=== PATIENT | male | born 1945 | race Caucasian/White ===

== ENCOUNTER 2017-05-20 16:44 | Emergency (ER) | payer MEDICARE, OTHER ==
--- NOTE | 2017-05-20 17:02 | ERPHSYRPT ---
- History of Present Illness Time Seen by Provider: 05/20/17 16:57 Source: patient Exam Limitations: no limitations Patient Subjective Stated Complaint: PT REPROTS WAKING UP THIS AM TO RIGHT EYE BEING RED IRRITATED ET SOMETIMES PAINFUL-DENIES INJURY-DENIES GETTING SOMETHING IN IT-REPORTS TEARING BUT DENIES DRAINAGE-REPORTS SENSATIVE TO LIGHT Triage Nursing Assessment: PT PINK WARM ET [id number] NOTED TO RIGHT EYE- PT DENIES BLURRED VISION OR VISUAL CHANGES-NO DRAINAGE NOTED AT THSI TIME Physician History: 71-year-old white male wakeup today morning with pain in his right eye. He feels like there is some foreign body on the lateral side of the right eye. He denies any visual disturbance, but he states that lights is bothering him. Denies any other symptoms. Has a normal 20/20 visual activity. Timing/Duration: today Location: right eye Severity: moderate Apparent Injury: possibly Associated Symptoms: pain, burning, sensitivity to light, redness Allergies/Adverse Reactions: nitroglycerin Allergy (Severe, Verified 05/20/17 16:53) HEART HEARTRATE DROPS INTO 20'S IF SUBLINGUAL Home Medications: Atorvastatin Calcium [Lipitor 40Mg] 40 mg PO DAILY 03/10/16 [History] Carvedilol 12.5 mg [Coreg 12.5 mg] 12.5 mg PO BID 03/10/16 [History] Furosemide 20 mg [Lasix 20 mg] 20 mg PO UD 03/10/16 [History] Lisinopril 10 mg [Zestril 10 MG] 10 mg PO DAILY 03/10/16 [History] Hx Tetanus, Diphtheria Vaccination/Date Given: No Hx Influenza Vaccination/Date Given: No Hx Pneumococcal Vaccination/Date Given: No Immunizations Up to Date: Yes - Review of Systems Constitutional: No Symptoms Eyes: Eye Pain, Eye Redness, Photophobia, Tearing, Foreign Body Sensation, No Vision Changes, No Double Vision Ears, Nose, & Throat: No Symptoms - Past Medical History Pertinent Past Medical History: Yes Cardiac History: Congestive Heart Failure, Hypertension, Myocardial Infarction ( [place]) - Past Surgical History Past Surgical History: Yes Cardiac: CABG, Internal Defibrillator, Pacemaker Musculoskeletal: Orthopedic Surgery - Social History Smoking Status: Never smoker Exposure to second hand smoke: No Drug Use: none Patient Lives Alone: No - Nursing Vital Signs Nursing Vital Signs: Initial Vital Signs Temperature 98.0 F 05/20/17 16:49 Pulse Rate 76 05/20/17 16:49 Respiratory Rate 20 05/20/17 16:49 Blood Pressure 152/88 05/20/17 16:49 O2 Sat by Pulse Oximetry 97 05/20/17 16:49 Pain Scale Pain Intensity 6 - Physical Exam General Appearance: no apparent distress Vision Acuity Degree Evaluation Phase: Corrected Eye Exam: right eye: conjunctival inflammation, erythema, bilateral eye: normal inspection, PERRL, EOMI Ears, Nose, Throat Exam: normal ENT inspection Neck Exam: normal inspection SpO2: 97 Oxygen Delivery: Room Air - Course Nursing assessment & vital signs reviewed: Yes - Progress Progress: improved, pain not gone completely Counseled pt/family regarding: diagnosis, need for follow-up - Departure Time of Disposition: 17:07 Departure Disposition: Home Clinical Impression: Scleritis and episcleritis of right eye Condition: Stable Critical Care Time: No Referrals: ANTONIO JEFFERSON MD [Primary Care Provider] - Instructions: Eye Pain Additional Instructions: use eye drops Tobradex 2 drops in right eye 4 times a day EYE PROBLEM 1. If a patch is applied, your vision will be impaired. Do not drive. 2. The more you rest your good eye, the better your affected eye will feel. 3. Use any eye drops or ointments as prescribed by the emergency room physician. 4. See your family physician or return to the emergency department for any increasing pain or decreased vision. 5. Use good hygiene and keep eye clean. 6. Do not rub the eye. use eye drops tobradex 2 drops in right eye every six hours, follow up with eye dr mg
[2017-05-20 17:16] VITALS: BP 148/72; PULSE 74; O2SAT 98
== END 2017-05-20 17:16 | disposition home or self-care (01) ==
LOC: ED 16:44
DX: H15.091 Other scleritis, right eye (principal); H15.101 Unspecified episcleritis, right eye
CPT/HCPCS: 99283; A9270-GY

== ENCOUNTER 2017-06-27 09:39 | Emergency (ER) | payer MEDICARE, OTHER ==
[2017-06-27] MEDS ORDERED: BABY ASPIRIN 81 MG CHEW PO ONE (10:06)
[2017-06-27] MEDS ORDERED: BABY ASPIRIN 81 MG CHEW ONE (10:10)
--- NOTE | 2017-06-27 10:13 | ERPHSYRPT ---
- History of Present Illness Time Seen by Provider: 06/27/17 10:08 Historian: patient Exam Limitations: no limitations Patient Subjective Stated Complaint: moving a tractor this am and began feeling weak. states had some slight chest discomfort at the time. earlier this week had a couple episodes of weakness and diaphoresis Triage Nursing Assessment: ambulated to room without difficulty. skin w/d, pale , resp easy and nonlabored. denies any discomfort at this time. did have some slight sob earlier. Physician History: 71-year-old white male arrives with complaint of shortness of breath feeling weak and pain in the anterior chest this occurred this morning him 8:30 and 9: 00. Patient states he's been experiencing fatigue and generalized weakness and chills for the past week. He states today he went to move a tractor weight which weighed about 150 pounds he began to feel short of breath extremely weak had anterior chest pain , described as a tightness,this lasted for about 15 minutes. Patient now states she does not have any shortness breath or chest pain he does feel weak. He has no nausea no vomiting. Past medical history includes congestive heart failure, high blood pressure, myocardial infarction. Past surgical history includes cardiac pacemaker, left shoulder surgery, CABG. Social history patient denies tobacco alcohol or illicit drug use. Patient states he took one aspirin this morning 81 mg which she takes daily. Timing/Duration: other (patient feeling weak for apprromately 1 week, patient with substernal chest pain, sob lasting 15 minutes occurred with exertion this morning at 8:30) Activities at Onset: activity (moving heavy tractor weight) Location: substernal Chest Pain Radiation: no radiation Severity of Pain-Max: moderate Modifying Factors: Improves With: exertion Nitro Today/Relief: no nitro taken today Aspirin Treatment Today: 81 mg x 1 (81 mg at home), 81 mg x 3 (243 mg in the ER) Allergies/Adverse Reactions: nitroglycerin Allergy (Severe, Verified 05/20/17 16:53) HEART HEARTRATE DROPS INTO 20'S IF SUBLINGUAL Home Medications: Atorvastatin Calcium [Lipitor 40Mg] 40 mg PO DAILY 03/10/16 [History] Carvedilol 12.5 mg [Coreg 12.5 mg] 12.5 mg PO BID 03/10/16 [History] Furosemide 20 mg [Lasix 20 mg] 20 mg PO UD 03/10/16 [History] Lisinopril 10 mg [Zestril 10 MG] 10 mg PO DAILY 03/10/16 [History] Hx Tetanus, Diphtheria Vaccination/Date Given: No Hx Influenza Vaccination/Date Given: No Hx Pneumococcal Vaccination/Date Given: No Immunizations Up to Date: No - Review of Systems Constitutional: Chills (chills last week), Weakness Eyes: No Symptoms Ears, Nose, & Throat: No Symptoms Respiratory: Dyspnea (shortness of breath with chest pain earlier today), Dyspnea on Exertion (ANDERSON), No Cough, No Cyanosis, No Stridor, No Wheezing Cardiac: Chest Pain, No Edema, No Palpitations, No Syncope, No Orthopnea, No PND Abdominal/Gastrointestinal: No Abdominal Pain, No Nausea, No Vomiting, No Diarrhea Genitourinary Symptoms: No Dysuria Musculoskeletal: No Back Pain, No Neck Pain Skin: No Rash Neurological: No Dizziness, No Focal Weakness, No Sensory Changes Psychological: No Symptoms Endocrine: No Symptoms All Other Systems: Reviewed and Negative - Past Medical History Pertinent Past Medical History: Yes Cardiac History: Congestive Heart Failure, Coronary Artery Disease, Hypertension , Myocardial Infarction ([place]) - Past Surgical History Past Surgical History: Yes Cardiac: CABG, Internal Defibrillator, Pacemaker Musculoskeletal: Orthopedic Surgery - Social History Smoking Status: Never smoker Exposure to second hand smoke: No Drug Use: none Patient Lives Alone: No - Nursing Vital Signs Nursing Vital Signs: Initial Vital Signs Temperature 97.3 F 06/27/17 09:47 Pulse Rate 80 06/27/17 09:47 Respiratory Rate 18 06/27/17 09:47 Blood Pressure 114/63 06/27/17 09:47 O2 Sat by Pulse Oximetry 98 06/27/17 09:47 Pain Scale Pain Intensity 0 - Physical Exam General Appearance: no apparent distress, alert Eye Exam: PERRL/EOMI, eyes nml inspection Ears, Nose, Throat Exam: normal ENT inspection, moist mucous membranes Neck Exam: normal inspection, non-tender, supple, full range of motion Respiratory Exam: normal breath sounds, lungs clear, No respiratory distress Cardiovascular Exam: regular rate/rhythm, normal heart sounds Gastrointestinal/Abdomen Exam: soft, No tenderness, No mass Back Exam: normal inspection, No CVA tenderness, No vertebral tenderness Extremity Exam: normal inspection, normal range of motion Neurologic Exam: alert, oriented x 3, cooperative, normal mood/affect, sensation nml, No motor deficits Skin Exam: normal color, warm, dry SpO2 Interpretation: normal (98%) SpO2: 98 Oxygen Delivery: Room Air - Course Nursing assessment & vital signs reviewed: Yes EKG Interpreted by Me: RATE (48 bpm), Other (EKG: Paced rhythm, 48 bpm) - Radiology Exams Chest X-ray Interpretation: Discussed w/ radiologist, Other (Chest x-ray: non acute underinflated chest with chronic features) Ordered Tests: Active Orders 24 hr Category Date Time Status Head Chef STAT Care 06/27/17 10:07 Active EKG-ER Only STAT Care 06/27/17 10:06 Active IV Insertion STAT Care 06/27/17 10:06 Active Pulse Oximetry (ED) STAT Care 06/27/17 10:06 Active CHEST 1 VIEW (PORTABLE) Stat Exams 06/27/17 10:06 Completed CBC W DIFF Stat Lab 06/27/17 10:17 Completed CMP Stat Lab 06/27/17 10:17 Completed D-DIMER QUANTITATION Stat Lab 06/27/17 10:14 Completed FREE TRIODOTHYRONINE Stat Lab 06/27/17 10:17 Completed NT PRO BNP Stat Lab 06/27/17 10:17 Completed PROTIME WITH INR Stat Lab 06/27/17 10:14 Completed PTT Stat Lab 06/27/17 10:14 Completed TROPONIN Q3H Lab 06/27/17 10:15 Completed TSH, 3RD Generation Routine Lab 06/27/17 10:15 Completed Medication Summary Generic Name Dose Route Start Last Admin Trade Name Freq PRN Reason Stop Dose Admin Heparin Sodium/Dextrose 250 mls @ 10 mls/hr 06/27/17 12:30 Heparin 25,000 Units/D5w 250ml Premix IV 07/27/17 12:29 .Q24H STEVEN Discontinued Medications Generic Name Dose Route Start Last Admin Trade Name Freq PRN Reason Stop Dose Admin Aspirin 243 mg 06/27/17 10:06 06/27/17 10:18 Baby Aspirin 81 Mg Chew PO 06/27/17 10:07 243 mg STAT ONE Administration Aspirin Confirm 06/27/17 10:10 Baby Aspirin 81 Mg Chew Administered 06/27/17 10:11 Dose 243 mg .ROUTE .STK-MED ONE Heparin Sodium (Beef Lung) 5,000 unit 06/27/17 12:22 06/27/17 12:36 Heparin 5000 Units/0.5 Ml (High Risk Med) IV 06/27/17 12:23 5,000 unit STAT ONE Administration Heparin Sodium (Beef Lung) Confirm 06/27/17 12:35 Heparin 5000 Units/0.5 Ml (High Risk Med) Administered 06/27/17 12:36 Dose 5,000 unit .ROUTE .STK-MED ONE Lab/Rad Data: Laboratory Result Diagrams 06/27/17 10:17 06/27/17 10:17 Laboratory Results 06/27/17 06/27/17 06/27/17 Range/Units 10:17 10: 10:15 WBC 5.1 (4.0-10.5) K/mm3 RBC 4.27 (4.1-5.6) M/mm3 Hgb 12.0 L (12.5-18.0) gm/dl Hct 36.4 L (42-50) % MCV 85.2 (78-100) fl MCH 28.1 (26-32) pg MCHC 33.0 (32-36) g/dl RDW 14.2 H (11.5-14.0) % Plt Count 178 (150-450) K/mm3 MPV 11.5 H (6-9.5) fl Gran % 70.2 H (36.0-66.0) % Lymphocytes % 19.9 L (24.0-44.0) % Monocytes % 7.3 (0.0-12.0) % Eosinophils % 2.0 (0.00-5.0) % Basophils % 0.6 (0.0-0.4) % Basophils # 0.03 (0-0.4) INR (0.8-3.0) APTT (24.1-36.1) SECONDS D-Dimer (0-500) ng/mL Sodium 139 (136-145) mEq/L Potassium 4.3 (3.5-5.1) mEq/L Chloride 105 (98-107) mEq/L Carbon Dioxide 22.2 (21-32) mEq/L Anion Gap 16.2 H (5-15) MEQ/L BUN 29 H (9-20) mg/dL Creatinine 1.45 H (0.55-1.30) mg/dl Estimated GFR 51 ML/MIN Glucose 164 H (70-110) MG/DL Calcium 9.0 (8.5-10.1) mg/dL Total Bilirubin 1.70 H (0.2-1.0) mg/dL AST 36 (15-37) U/L ALT 33 (12-78) U/L Alkaline Phosphatase 81 (46-116) U/L Troponin I < 0.017 (0.000-0.056) ng/ml NT-Pro-B Natriuret Pep 1337 H (0-125) pg/ml Serum Total Protein 7.3 (6.4-8.2) gm/dL Albumin 3.7 (3.4-5.0) g/dL Free T3 pg/mL 3.87 (2.18-3.98) pg/ml TSH 3rd Generation 0.015 L (0.358-3.740) mIU/L 06/27/17 06/27/17 Range/Units 10:14 10:14 WBC (4.0-10.5) K/mm3 RBC (4.1-5.6) M/mm3 Hgb (12.5-18.0) gm/dl Hct (42-50) % MCV (78-100) fl MCH (26-32) pg MCHC (32-36) g/dl RDW (11.5-14.0) % Plt Count (150-450) K/mm3 MPV (6-9.5) fl Gran % (36.0-66.0) % Lymphocytes % (24.0-44.0) % Monocytes % (0.0-12.0) % Eosinophils % (0.00-5.0) % Basophils % (0.0-0.4) % Basophils # (0-0.4) INR 1.07 (0.8-3.0) APTT 32.0 (24.1-36.1) SECONDS D-Dimer 1266 H* (0-500) ng/mL Sodium (136-145) mEq/L Potassium (3.5-5.1) mEq/L Chloride (98-107) mEq/L Carbon Dioxide (21-32) mEq/L Anion Gap (5-15) MEQ/L BUN (9-20) mg/dL Creatinine (0.55-1.30) mg/dl Estimated GFR ML/MIN Glucose (70-110) MG/DL Calcium (8.5-10.1) mg/dL Total Bilirubin (0.2-1.0) mg/dL AST (15-37) U/L ALT (12-78) U/L Alkaline Phosphatase (46-116) U/L Troponin I (0.000-0.056) ng/ml NT-Pro-B Natriuret Pep (0-125) pg/ml Serum Total Protein (6.4-8.2) gm/dL Albumin (3.4-5.0) g/dL Free T3 pg/mL (2.18-3.98) pg/ml TSH 3rd Generation (0.358-3.740) mIU/L - Progress Progress: improved Air Movement: fair Progress Note: 06/27/17 11:36 71-year-old white male with history of atherosclerotic coronary artery disease CABG and cardiac pacemaker. He arrives with complaint of a feeling weak and experiencing anterior chest pain shortness of breath which occurred around 8:30 this morning while moving a very heavy tractor weight. On arrival patient is pain-free EKG shows a paced rhythm no acute changes troponin is within normal limits. Chest x-ray is remarkable for chronic the changes no acute disease process noted patient's d-dimer was elevated at 1266 patient's BNP was elevated at 1337. initial troponin was normal. Patient appears to be stable. Consideration was given to obtaining CT a chest however patient's creatinine clearance is 51. We are unable to do a VQ scan at this time in this facility patient was asking that I discuss case with the patient's industrial production manager, . Case was discussed with her she has a agreed to accept patient in transfer to [facility] [place]. Will give patient heparin bolus and placed on a heparin drip. Patient has already received aspirin 243 mg he took 81 mg at home we'll plan to transfer when bed is available. Diagnosis chest pain. Elevated d-dimer. . - Departure Time of Disposition: 13:00 Departure Disposition: Transfer ([facility] [address]) Clinical Impression: Elevated d-dimer Chest pain Qualifiers: Chest pain type: unspecified Qualified Code(s): R07.9 - Chest pain, unspecified Condition: Fair Critical Care Time: No Referrals: ANTONIO JEFFERSON MD [Primary Care Provider] -
[2017-06-27 10:19] LABS: BASOPHIL % 0.6 % (0.0-0.4); Granulocytes % 70.2 % (36.0-66.0); Lymphocytes % 19.9 % (24.0-44.0); Mean Cell Volume 85.2 fl (78-100); Mean Corpuscular Hemoglobin 28.1 pg (26-32); Mean Platelet Volume 11.5 fl (6-9.5); Monocytes % 7.3 % (0.0-12.0); Platelet Count 178 K/mm3 (150-450); Red Blood Count 4.27 M/mm3 (4.1-5.6); Red Cell Distribution Width 14.2 % (11.5-14.0); White Blood Count 5.1 K/mm3 (4.0-10.5)
--- NOTE | 2017-06-27 10:45 | XRAY ---
Indication: Chest pain and short of breath. Comparison: March 10, 2016. Portable chest underinflated today again without focal infiltrate, consolidation, or large effusion. The heart is borderline prominent again demonstrating previous cardiac valve replacement surgery and left-sided AICD. Bony thorax intact again with mild osteopenia and degenerative changes. Impression: Nonacute underinflated chest with chronic features.
[2017-06-27 11:01] LABS: ALBUMIN 3.7 g/dL (3.4-5.0); ANION GAP 16.2 MEQ/L (5-15); BILIRUBIN,TOTAL 1.7 mg/dL (0.2-1.0); Carbon Dioxide 22.2 mEq/L (21-32); FREE TRIODOTHYRONINE 3.87 pg/ml (2.18-3.98); Potassium 4.3 mEq/L (3.5-5.1); Total Protein 7.3 gm/dL (6.4-8.2)
[2017-06-27 11:05] LABS: TROPONIN < 0.017 ng/ml (0.000-0.056)
[2017-06-27] MEDS ORDERED: Heparin 5000 UNITS/0.5 ML (HIGH RISK MED) IV ONE (12:22)
[2017-06-27] MEDS ORDERED: Heparin 25,000 units/D5W 250ML PREMIX 25,000 UNITS/250 ML BAG IV SCH (12:30)
[2017-06-27] MEDS ORDERED: Heparin 5000 UNITS/0.5 ML (HIGH RISK MED) ONE (12:35)
[2017-06-27 12:42] LABS: INR 1.07 (0.8-3.0); PROTIME 11.9 SECONDS (8.83-12.87)
[2017-06-27 13:29] VITALS: BP 137/81; PULSE 65
[2017-06-27 19:48] VITALS: O2SAT 98
== END 2017-06-27 13:29 | disposition short-term general hospital (02) ==
LOC: ED 09:39
DX: R79.1 Abnormal coagulation profile (principal); R07.9 Chest pain, unspecified; I25.10 Atherosclerotic heart disease of native coronary artery without angina pectoris; Z95.1 Presence of aortocoronary bypass graft; Z95.0 Presence of cardiac pacemaker; R07.89 Other chest pain; R06.02 Shortness of breath; I50.9 Heart failure, unspecified; I10 Essential (primary) hypertension; I21.9 Acute myocardial infarction, unspecified; Z79.899 Other long term (current) drug therapy
CPT/HCPCS: 36000; 36415; 71010; 80053; 83880; 84443; 84481; 84484; 85025; 85379; 85610; 85730; 93005; 93041; 96374; 99285; J1644; A9270-GY

== ENCOUNTER 2019-08-14 11:45 | Emergency (ER) | payer MEDICARE, OTHER ==
--- NOTE | 2019-08-14 12:05 | ERPHSYRPT ---
- History of Present Illness Time Seen by Provider: 08/14/19 11:55 Source: patient Exam Limitations: no limitations Physician History: 74 y/o white male with sig cardiac hx including cabg, cardiac stents and pacemaker/defibrillator in place. pt has had a mild intermittent cough. denies cp. his major complaint is weakness. pt denies any other flu like sx. Timing/Duration: day(s) (5) Severity: moderate Associated Symptoms: shortness of breath (mild), weakness, No nausea, No vomiting, No abdominal pain, No chest pain, No fever Allergies/Adverse Reactions: nitroglycerin Allergy (Severe, Verified 05/20/17 16:53) HEART HEARTRATE DROPS INTO 20'S IF SUBLINGUAL Home Medications: Atorvastatin Calcium [Lipitor 40Mg] 40 mg PO DAILY 03/10/16 [History] Carvedilol 12.5 mg [Coreg 12.5 mg] 12.5 mg PO BID 03/10/16 [History] Furosemide 20 mg [Lasix 20 mg] 20 mg PO UD 03/10/16 [History] Lisinopril 10 mg [Zestril 10 MG] 10 mg PO DAILY 03/10/16 [History] Hx Tetanus, Diphtheria Vaccination/Date Given: No Hx Influenza Vaccination/Date Given: No Hx Pneumococcal Vaccination/Date Given: No - Review of Systems Constitutional: Weakness Eyes: No Symptoms Ears, Nose, & Throat: No Symptoms Respiratory: Cough, Dyspnea Cardiac: No Symptoms, No Chest Pain Abdominal/Gastrointestinal: No Symptoms Genitourinary Symptoms: No Symptoms Musculoskeletal: No Symptoms Skin: No Symptoms Neurological: No Symptoms Psychological: No Symptoms Endocrine: No Symptoms Hematologic/Lymphatic: No Symptoms Immunological/Allergic: No Symptoms All Other Systems: Reviewed and Negative - Past Medical History Pertinent Past Medical History: Yes Neurological History: No Pertinent History ENT History: No Pertinent History Cardiac History: Congestive Heart Failure, Coronary Artery Disease, Hypertension , Myocardial Infarction ([place]) Respiratory History: No Pertinent History Endocrine Medical History: No Pertinent History Musculoskeletal History: No Pertinent History GI Medical History: No Pertinent History History: No Pertinent History Psycho-Social History: No Pertinent History Male Reproductive Disorders: No Pertinent History - Past Surgical History Past Surgical History: Yes Neuro Surgical History: No Pertinent History Cardiac: CABG, Internal Defibrillator, Pacemaker Respiratory: No Pertinent History Gastrointestinal: No Pertinent History Genitourinary: No Pertinent History Musculoskeletal: No Pertinent History, Orthopedic Surgery Male Surgical History: No Pertinent History - Social History Smoking Status: Never smoker Exposure to second hand smoke: No Drug Use: none Patient Lives Alone: No - Nursing Vital Signs Nursing Vital Signs: Initial Vital Signs Temperature 97.6 F 08/14/19 11:55 Pulse Rate 103 H 08/14/19 11:55 Respiratory Rate 16 08/14/19 11:55 Blood Pressure 119/81 08/14/19 11:55 O2 Sat by Pulse Oximetry 98 08/14/19 11:55 Pain Scale Pain Intensity 0 - Physical Exam General Appearance: mild distress, alert, anxiety Eye Exam: PERRL/EOMI, eyes nml inspection Ears, Nose, Throat Exam: normal ENT inspection, moist mucous membranes Neck Exam: normal inspection, non-tender, supple, full range of motion Respiratory Exam: normal breath sounds, lungs clear, airway intact, No chest tenderness, No respiratory distress Cardiovascular Exam: regular rate/rhythm, normal heart sounds, normal peripheral pulses Gastrointestinal/Abdomen Exam: soft, normal bowel sounds, No tenderness Rectal Exam: not done Back Exam: normal inspection, normal range of motion, No CVA tenderness, No vertebral tenderness Extremity Exam: normal inspection, normal range of motion, pelvis stable Neurologic Exam: alert, oriented x 3, cooperative, gmat instructor II-XII nml as tested Skin Exam: normal color, warm, dry Lymphatic Exam: No adenopathy SpO2 Interpretation: normal O2 Delivery: Room Air - Course Nursing assessment & vital signs reviewed: Yes EKG Interpreted by Me: RATE (107), Other (av paced rhythm. new tachycardia compared to ekg dated 06/27/17) Ordered Tests: Active Orders 24 hr Category Date Time Status CHEST 1 VIEW (PORTABLE) Stat Exams 08/14/19 12:09 Completed CBC W DIFF Stat Lab 08/14/19 12:17 Completed CMP Stat Lab 08/14/19 12:17 Completed D-DIMER QUANTITATIVE Stat Lab 08/14/19 12:17 Completed MAGNESIUM Stat Lab 08/14/19 12:17 Completed NT PRO BNP Stat Lab 08/14/19 12:17 Completed PROTIME WITH INR Stat Lab 08/14/19 12:17 Completed TROPONIN Q3H Lab 08/14/19 12:17 Completed TROPONIN Q3H Lab 08/14/19 15:15 Ordered TROPONIN Q3H Lab 08/14/19 18:15 Ordered TROPONIN Q3H Lab 08/14/19 21:15 Ordered Medication Summary Discontinued Medications Generic Name Dose Route Start Last Admin Trade Name Birgit PRN Reason Stop Dose Admin Furosemide 40 mg 08/14/19 13:04 08/14/19 13:12 Lasix 40 Mg/4 Ml IV 08/14/19 13:05 40 mg STAT ONE Administration Furosemide Confirm 08/14/19 13:11 Lasix 40 Mg/4 Ml Administered 08/14/19 13:12 Dose 40 mg .ROUTE .STK-MED ONE Lab/Rad Data: Laboratory Result Diagrams 08/14/19 12:17 08/14/19 12:17 Laboratory Results 08/14/19 08/14/19 08/14/19 Range/Units 12:17 12:17 12:17 WBC (4.0-10.5) K/mm3 RBC (4.1-5.6) M/mm3 Hgb (12.5-18.0) gm/dl Hct (42-50) % MCV (78-100) fl MCH (26-32) pg MCHC (32-36) g/dl RDW (11.5-14.0) % Plt Count (150-450) K/mm3 MPV (7.5-11.0) fl Gran % (36.0-66.0) % Eos # (Auto) (0-0.5) Absolute Lymphs (auto) (1.0-4.6) Absolute Monos (auto) (0.0-1.3) Lymphocytes % (24.0-44.0) % Monocytes % (0.0-12.0) % Eosinophils % (0.00-5.0) % Basophils % (0.0-0.4) % Absolute Granulocytes (1.4-6.9) Basophils # (0-0.4) PT 11.8 (8.83-12.87) SECONDS INR 1.04 (0.8-3.0) D-Dimer 1075 H* (215-500) ng/mL Sodium 140 (137-145) mmol/L Potassium 5.0 (3.5-5.1) mmol/L Chloride 108 H (98-107) mmol/L Carbon Dioxide 26 (22-30) mmol/L Anion Gap 11.4 (5-15) MEQ/L BUN 34 H (9-20) mg/dL Creatinine 1.96 H (0.66-1.25) mg/dL Estimated GFR 35.5 ML/MIN Glucose 104 (74-106) mg/dL Calcium 9.4 (8.4-10.2) mg/dL Magnesium 2.4 H (1.6-2.3) mg/dL Total Bilirubin 1.20 (0.2-1.3) mg/dL AST 25 (17-59) U/L ALT 20 (0-50) U/L Alkaline Phosphatase 65 (38-126) U/L Troponin I < 0.012 (0.000-0.034) ng/mL NT-Pro-B Natriuret Pep 2390 H (0-1800) pg/mL Serum Total Protein 7.5 (6.3-8.2) g/dL Albumin 4.1 (3.5-5.0) g/dL 08/14/19 Range/Units 12:17 WBC 5.2 (4.0-10.5) K/mm3 RBC 4.10 (4.1-5.6) M/mm3 Hgb 12.1 L (12.5-18.0) gm/dl Hct 37.2 L (42-50) % MCV 90.7 (78-100) fl MCH 29.5 (26-32) pg MCHC 32.5 (32-36) g/dl RDW 14.6 H (11.5-14.0) % Plt Count 151 (150-450) K/mm3 MPV 12.1 H (7.5-11.0) fl Gran % 63.5 (36.0-66.0) % Eos # (Auto) 0.18 (0-0.5) Absolute Lymphs (auto) 1.14 (1.0-4.6) Absolute Monos (auto) 0.53 (0.0-1.3) Lymphocytes % 22.1 L (24.0-44.0) % Monocytes % 10.3 (0.0-12.0) % Eosinophils % 3.5 (0.00-5.0) % Basophils % 0.6 (0.0-0.4) % Absolute Granulocytes 3.27 (1.4-6.9) Basophils # 0.03 (0-0.4) PT (8.83-12.87) SECONDS INR (0.8-3.0) D-Dimer (215-500) ng/mL Sodium (137-145) mmol/L Potassium (3.5-5.1) mmol/L Chloride (98-107) mmol/L Carbon Dioxide (22-30) mmol/L Anion Gap (5-15) MEQ/L BUN (9-20) mg/dL Creatinine (0.66-1.25) mg/dL Estimated GFR ML/MIN Glucose (74-106) mg/dL Calcium (8.4-10.2) mg/dL Magnesium (1.6-2.3) mg/dL Total Bilirubin (0.2-1.3) mg/dL AST (17-59) U/L ALT (0-50) U/L Alkaline Phosphatase (38-126) U/L Troponin I (0.000-0.034) ng/mL NT-Pro-B Natriuret Pep (0-1800) pg/mL Serum Total Protein (6.3-8.2) g/dL Albumin (3.5-5.0) g/dL - Progress Progress: unchanged, re-examined Progress Note: 08/14/19 14:[address] jason, pts ribbon lap machine tender, at 1310, 1330 and 1425. at 1425 we were informed she was in a procedure scheduled until 1430. pts condition has not changed. 08/14/19 15:[address] jason at 1450. she does not feel there is acute cardiac decompensation. she does feel as though his sx of weakness, elevated d dimer and acute renal insufficiency warrants transfer. they will consult and hospitalist will admit. need to wait for call back from hospitalist 08/14/19 15:43 dr. Becky Tillman [facility] hospitalist, accepts pt for transfer. Counseled pt/family regarding: lab results, diagnosis, rad results - Departure Departure Disposition: Home Clinical Impression: Weakness, Elevated d-dimer, Acute kidney insufficiency Condition: Stable Critical Care Time: No Referrals: ANTONIO JEFFERSON MD [Primary Care Provider] -
[2019-08-14 12:31] LABS: Absolute Neutrophil Ct (ANC) 3.27 (1.4-6.9); BASOPHIL % 0.6 % (0.0-0.4); Basophil (Absolute #) 0.03 (0-0.4); Eosinophil % 3.5 % (0.00-5.0); Eosinophil (Absolute #) 0.18 (0-0.5); Hematocrit 37.2 % (42-50); Hemoglobin 12.1 gm/dl (12.5-18.0); Lymphocyte (Absolute #) 1.14 (1.0-4.6); Lymphocytes % 22.1 % (24.0-44.0); Mean Cell Volume 90.7 fl (78-100); Mean Corpuscular Hemoglobin 29.5 pg (26-32); Mean Corpuscular Hgb Concent. 32.5 g/dl (32-36); Mean Platelet Volume 12.1 fl (7.5-11.0); Monocyte (Absolute #) 0.53 (0.0-1.3); Monocytes % 10.3 % (0.0-12.0); Neutrophil % 63.5 % (36.0-66.0); Platelet Count 151 K/mm3 (150-450); Red Cell Distribution Width 14.6 % (11.5-14.0); White Blood Count 5.2 K/mm3 (4.0-10.5)
--- NOTE | 2019-08-14 12:38 | XRAY ---
Indication: Chest pain and weakness. Comparison: June 27, 2017. Portable chest remains clear. Heart remains borderline enlarged again with cardiac valve replacement surgery and left-sided AICD. Bony thorax intact again with mild osteopenia and degenerative changes. Impression: Nonacute chest with chronic features.
[2019-08-14 12:44] LABS: ALBUMIN 4.1 g/dL (3.5-5.0); ANION GAP 11.4 MEQ/L (5-15); BILIRUBIN,TOTAL 1.2 mg/dL (0.2-1.3); Calcium 9.4 mg/dL (8.4-10.2); Creatinine 1 1.96 mg/dL (0.66-1.25); INR 1.04 (0.8-3.0); MAGNESIUM 2.4 mg/dL (1.6-2.3); PROTIME 11.8 SECONDS (8.83-12.87); Total Protein 7.5 g/dL (6.3-8.2)
[2019-08-14] MEDS ORDERED: Lasix 40 MG/4 ML IV ONE (13:04)
[2019-08-14] MEDS ORDERED: Lasix 40 MG/4 ML ONE (13:11)
[2019-08-14 17:05] VITALS: BP 94/64; PULSE 69; O2SAT 97
== END 2019-08-14 17:27 | disposition short-term general hospital (02) ==
LOC: ED 11:45
DX: R53.1 Weakness (principal); R79.89 Other specified abnormal findings of blood chemistry; N28.9 Disorder of kidney and ureter, unspecified; I50.9 Heart failure, unspecified; I25.10 Atherosclerotic heart disease of native coronary artery without angina pectoris; I10 Essential (primary) hypertension; I25.2 Old myocardial infarction; Z95.810 Presence of automatic (implantable) cardiac defibrillator
CPT/HCPCS: 36000; 36415; 71045; 80053; 83735; 83880; 84484; 85025; 85379; 85610; 96374; 99285; J1940